=== PATIENT | male | born 1980 | race Caucasian/White ===

== ENCOUNTER → 2019-06-30 | Outpatient (CLI) | payer OTHER ==
--- NOTE | 2019-06-30 17:00 | PCVCIMAG ---
APPROVED REPORT Patient Location: Echo lab Room #: Stress Nurse: Indiana Whitehead RN Indications: Hypertension, Hyperlipidemia, Dyspnea, Abnormal EKG The patient exercised according to the CHRISTINA protocol for13:32 mins; achieving a work level of Max METS: 17.20 The resting heart rate of 60 bpm carlos manuel to a maximum heart rate of 181 bpm. This value represent 100 % of the maximal, age-predicted heart rate. The resting blood pressure of 110/70 mmHg, carlos manuel to a maximum blood pressure of 160/62 mmHg. The exercise test was stopped due to fatigue. Resting EKG: Sinus rhythm with anterior T-wave abnormality Stress EKG: Rare occasional premature ventricular complexes. No ST segment shifts diagnostic of myocardial ischemia. Conclusion 1. Maximal treadmill exercise study, negative for exercise-induced myocardial ischemia. 2. No subjective signs of ischemia such as chest pain or anginal-like symptoms. No ischemic electrocardiographic changes. 3. The study was associated with good exercise capacity (7.2 METS). Low Oliveros treadmill exercise score.
--- NOTE | 2019-06-30 17:04 | PCVCIMAG ---
APPROVED REPORT Study performed: 06/30/2019 14:56:53 EXAM: Comprehensive 2D, Doppler, and color-flow Echocardiogram Patient Location: Echo lab Status: routine BSA: 2.17 HR: 57 bpmBP: 110/70 mmHg Rhythm: NSR Other Information Study Quality: Good Risk Factors: Cardiac Risk Factors: HTN, Hyperlipidemia Indications Dyspnea Elevated calcium score 2D Dimensions IVSd: 16.41 (7-11mm)LVOT Diam: 19.96 (18-24mm) LVDd: 36.22 mm PWd: 13.01 (7-11mm)Ascending Ao: 31.22 (22-36mm) LVDs: 25.13 (25-40mm) Left Atrium: 41.69 (27-40mm) Aortic Root: 33.01 mm LV Single Plane 4CH: 58.12 % LV Single Plane 2CH: 63.15 % Biplane EF: 61.2 % Volumes Left Atrial Volume (Systole) Single Plane 4CH: 51.74 mLSingle Plane 2CH: 29.44 mL LA ESV Index: 19.00 mL/m2 Aortic Valve AoV Peak Anson.: 1.50 m/s AO Peak Gr.: 9.03 mmHgLVOT Max P.38 mmHg LVOT Max V: 1.26 m/s PAVITHRA Vmax: 2.63 cm2 Mitral Valve E/A Ratio: 1.1 MV Decel. Time: 207.85 ms MV E Max Anson.: 0.61 m/s MV A Anson.: 0.55 m/s IVRT: 114.19 ms TDI E/Lateral E': 4.69E/Medial E': 10.17 Medial E' Anson.: 0.06 m/s Lateral E' Anson.: 0.13 m/s Pulmonary Valve PV Peak Gr.: 3.55 mmHg Pulmonary Vein P Vein S: 0.57 m/sP Vein A: 0.37 m/s P Vein D: 0.35 m/sP Vein A Dur.: 117.6 msec P Vein S/D Ratio: 1.63 Tricuspid Valve TR Peak Anson.: 2.64 m/s TR Peak Gr.: 27.87 mmHg Left Ventricle The left ventricle is normal size. There is normal LV segmental wall motion. Mild concentric left ventricular hypertrophy, possible apical predominance Left ventricular systolic function is normal. The left ventricular ejection fraction is within the normal range. LVEF is 60-65%. The left ventricular diastolic function is normal. Right Ventricle The right ventricle is normal size. The right ventricular systolic function is normal. Atria The left atrium size is normal. The right atrium size is normal. Aortic Valve The aortic valve is normal in structure. No aortic regurgitation is present. There is no aortic valvular stenosis. Mitral Valve The mitral valve is normal in structure. Trace mitral regurgitation. No evidence of mitral valve stenosis. Tricuspid Valve The tricuspid valve is normal in structure. Trace tricuspid regurgitation. Pulmonary artery pressure is 32 mmHg. Pulmonic Valve The pulmonary valve is normal in structure. There is no pulmonic valvular regurgitation. Great Vessels The aortic root is normal in size. IVC is normal in size and collapses >50% with inspiration. Pericardium There is no pericardial effusion. <Conclusion> Left ventricular systolic function is normal. There is normal LV segmental wall motion. Mild concentric left ventricular hypertrophy, possible apical predominance LVEF is 60-65%. Normal diastolic function Structural valvular disease was absent. No significant regurgitant or stenotic lesions. Trace tricuspid regurgitation. Pulmonary artery pressure is 32 mmHg. There is no pericardial effusion. Consider cardiac MR. Features suggestive of apical hypertrophic cardiomyopathy.
== END | disposition home or self-care (01) ==
LOC: PCVCIMAG 15:03
PROVIDERS: ATTEND Internal Medicine
DX: R94.31 Abnormal electrocardiogram [ECG] [EKG] (principal); E78.5 Hyperlipidemia, unspecified; R93.1 Abnormal findings on diagnostic imaging of heart and coronary circulation; I10 Essential (primary) hypertension; R06.00 Dyspnea, unspecified; K21.9 Gastro-esophageal reflux disease without esophagitis; Z72.89 Other problems related to lifestyle; Z87.891 Personal history of nicotine dependence; Z91.018 Allergy to other foods
CPT/HCPCS: 93017; 93306